=== PATIENT | female | born 1975 | race Caucasian/White ===

== ENCOUNTER 2021-07-21 15:20 | Emergency (ER) | payer MEDICARE ==
[2021-07-21] MEDS ORDERED: Ondansetron PF 4 MG/2 ML Vial ONE (16:26)
[2021-07-21 16:58] LABS: #Monocytes 0.2 10x3/uL (0.0-1.1); #Neutrophils 10.9 10x3/uL (1.5-8.4); %Basophils 0.2 % (0.0-2.0); %Lymphocytes 5.6 % (18.0-47.0); %Neutrophils 91.7 % (40.0-75.0); Hemoglobin 16.3 g/dL (12.0-15.5); Mean Corpuscular HGB CONC 34.2 g/dL (32.0-36.0); Mean Corpuscular Volume 90.7 fl (81.6-98.3); Mean Platelet Volume 9.5 fl (7.4-10.4); Platelet Count 274 10x3/uL (150-450); Red Blood Cell (RBC) Count 5.26 10x6/uL (3.90-5.03); White Blood Cell (WBC) Count 11.9 10x3/uL (3.5-10.5)
[2021-07-21] MEDS ORDERED: Metoclopramide HCl 10 MG/2 ML VIAL ONE (17:05)
[2021-07-21 17:07] LABS: BHCG - Serum Negative (NEGATIVE); Pregs Control Background? CLEAR/WHITE (CLR/WHITE); Pregs Control Bar Appear? YES (CONTROL BAR)
[2021-07-21 17:11] LABS: Bilirubin Neg (Negative); Blood, Urine 25 (Negative); Clarity Clear (Clear); Glucose, Urine (Dipstick) Normal (Negative); Ketone, Urine 150 mg/dL (Negative); Leukocyte Negative (Negative); Nitrite Negative (Negative); Protein, Urine (Dipstick) 30 mg/dl (Neg-Trace); Specific Gravity, Urine 1.015 (1.002-1.036); Urobilinogen Normal mg/dL (Less than 2)
[2021-07-21 17:15] LABS: ALT (SGPT) 53 U/L (8-55); AST (SGOT) 27 U/L (5-34); Albumin 4.3 g/dL (3.5-5.0); Alkaline Phosphatase 62 U/L (40-110); Anion Gap 18 mmol/L (10-20); BUN (Urea Nitrogen) 12 mg/dL (7.0-18.7); Calc. Creatinine Clearance 0 mL/min (70-130); Calcium 8.3 mg/dL (7.8-10.44); Carbon Dioxide 18 mmol/L (22-29); Chloride 109 mmol/L (98-107); Glucose 153 mg/dL (70-105); Lipase 42 U/L (8-78); Potassium 4.1 mmol/L (3.5-5.1); Protein, Total 7.3 g/dL (6.0-8.3); Sodium 141 mmol/L (136-145)
[2021-07-21 17:19] LABS: Bacteria/HPF None Seen HPF (None Seen); Squamous Epithelial 0-3 HPF (0-3); WBC/HPF 0-3 HPF (0-3)
[2021-07-21] MEDS ORDERED: Haloperidol Lactate 5 MG/ML VIAL ONE (18:05)
[2021-07-21] MEDS ORDERED: Ketorolac Tromethamine 30 MG/ML VIAL ONE (18:06)
== END 2021-07-21 18:50 | disposition home or self-care (01) ==
LOC: CSHERS 15:20
DX: R11.2 Nausea with vomiting, unspecified (principal); R31.29 Other microscopic hematuria; G43.909 Migraine, unspecified, not intractable, without status migrainosus; M06.9 Rheumatoid arthritis, unspecified; E03.9 Hypothyroidism, unspecified
CPT/HCPCS: 80053; 81003; 81015; 83690; 84484; 84703; 85025; 93005; 96372; 96374; 96375; J1630; J1885; J2405; J2765

== ENCOUNTER 2022-01-31 12:33 | Emergency (ER) | payer MEDICARE ==
[2022-01-31] MEDS ORDERED: Promethazine HCl 25 MG/ML VIAL ONE (13:48)
== END 2022-01-31 17:04 | disposition home or self-care (01) ==
LOC: CSHERS 12:33
DX: F19.230 Other psychoactive substance dependence with withdrawal, uncomplicated (principal); M06.9 Rheumatoid arthritis, unspecified; E03.9 Hypothyroidism, unspecified
CPT/HCPCS: 96374; J2550

== ENCOUNTER 2022-02-01 12:28 | Emergency (ER) | payer MEDICARE | END 2022-02-01 13:52 | disposition home or self-care (01) | LOC: CSHERS 12:28 | DX: G89.4 Chronic pain syndrome (principal); E03.9 Hypothyroidism, unspecified; G40.909 Epilepsy, unspecified, not intractable, without status epilepticus | CPT/HCPCS: 99283 ==